=== PATIENT | male | born 1980 | race African-American/Black ===

== ENCOUNTER → 2019-09-04 | Outpatient (CLI) | payer OTHER ==
--- NOTE | 2019-09-04 13:26 | RAD ---
EXAM: Soft tissue ultrasound right elbow. HISTORY: Right elbow pain and swelling. COMPARISON: None. FINDINGS: Sonography of the right elbow was performed at the site of concern, which is not marked but appears to overlie the olecranon. This reveals a septated fluid collection measuring 4.3 x 3.7 x 1.3 cm. There is surrounding soft tissue edema. IMPRESSION: 1. 4.3 x 3.7 cm fluid collection at the site of concern. If this overlies the olecranon, this is consistent with olecranon bursitis. Electronically signed by: Bhargavi Shay MD (09/04/2019 1:23 PM) [facility] [place]
== END | disposition home or self-care (01) ==
LOC: US 11:08
PROVIDERS: ATTEND Physician Assistant Medical
DX: L03.113 Cellulitis of right upper limb (principal); M70.21 Olecranon bursitis, right elbow; R22.31 Localized swelling, mass and lump, right upper limb
CPT/HCPCS: 76881